=== PATIENT | male | born 2000 | race Caucasian/White ===

== ENCOUNTER 2025-09-01 21:43 | Emergency (ER) | payer OTHER ==
[~2025-09-01] VITALS: Ht 175.3 cm; Wt 79.0 kg
[2025-09-01 21:51] VITALS: O2SAT 98
[2025-09-01 21:54] VITALS: BP 108/84; PULSE 81; RESP 18; TEMP 36.9; O2SAT 98
== END 2025-09-02 03:30 | disposition left against medical advice (07) ==
LOC: ER 22:01
DX: R51.9 Headache, unspecified (principal); M54.2 Cervicalgia; R11.0 Nausea
CPT/HCPCS: 99281